=== PATIENT | male | born 1990 | race Caucasian/White ===

== ENCOUNTER 2018-06-06 04:34 | Observation (INO) ==
[2018-06-06] MEDS ORDERED: Sod Chloride 0.9% Inj 1,000 ML IV.SIG ONE (04:58)
[2018-06-06] MEDS ORDERED: Morphine Inj 4 MG/ML Vial IV.PUSH ONE (04:58)
--- NOTE | 2018-06-06 05:03 | ED ---
HPI General Chief Complaint: Abdominal Pain Stated Complaint: Abd pain,rectal pain x 1 day Source: patient Mode of arrival: ambulatory Limitations: no limitations History of Present Illness HPI narrative: 27-year-old male with history of ulcerative colitis presents to the emergency department complaining of abdominal pain and cramping with mucoid bloody stools and hematemesis. Patient is followed by journeyman mechanic and is receiving Remicade once weekly. Patient/journeyman mechanic as recently as Thursday was having minor symptoms that have escalated over the past 4 days. No fever chills. Patient states frequent mucoid bloody stools and then this morning started having vomiting with blood. No near syncope or syncope. No recent antibiotic use. Patient was recently seen in the emergency department according to him. Patient denies other concerns or complaints. Patient has had a 10 pound weight loss in the past 2 weeks reportedly. MD complaint: abdominal pain Onset (ago): day(s) Pain Consistency: constant Location: diffuse Severity: severe Quality: cramping, aching and fullness Radiation: none Migration to: no migration Relieving factors: nothing Exacerbating factors: nothing Context: history of similar episodes Associated symptoms: nausea, vomiting, diarrhea, hematemesis and hematochezia Treatments prior to arrival: other (Remicade once weekly otherwise none prior to arrival to the emergency depart) Related Data Home Medications Medication Instructions Recorded Confirmed infliximab [Remicade] 5 mg/kg IV Q8W 06/06/18 06/06/18 mesalamine 1.5 g PO DAILY 06/06/18 06/06/18 Allergies Allergy/AdvReac Type Severity Reaction Status Date / Time ketorolac [From Toradol] Allergy Hives Verified 06/06/18 05:00 Review of Systems ROS: all other systems reviewed are negative PMFSH History History Provided By: Patient (Inflammatory bowel disease on Remicade) Medical History Medical History History of Crohn's disease (Acute) History of colitis (Acute) Social History Social History Substance History: No History of Abuse Smoking Status: Current some day smoker Tobacco Type: Cigarettes How Often Do You Have a Drink Containing Alcohol: Never Recent Travel in [facility] within the Last 8 Weeks: No Recent Out of Country Travel within the Last 8 Weeks: No Exam Narrative Exam Narrative: GENERAL: Well-nourished, well-developed patient. SKIN: Focused skin assessment warm/dry. HEAD: Normocephalic. EYES: No scleral icterus. No injection or drainage. NECK: Supple, trachea midline. No JVD or lymphadenopathy. CARDIOVASCULAR: Regular rate and rhythm without murmurs, gallops, or rubs. RESPIRATORY: Breath sounds equal bilaterally. No accessory muscle use. GASTROINTESTINAL: Abdomen soft, diffusely tender with voluntary guarding primarily left lower quadrant, nondistended. MUSCULOSKELETAL: No cyanosis, or edema. BACK: Nontender without obvious deformity. No CVA tenderness. Course Reevaluation(s) Reevaluation #1: discussed with [facility] service for OBS admission to Dr Kearney's service Initial Documented Vital Signs Temperature 97.7 F 06/06/18 04:41 Pulse Rate 95 H 06/06/18 04:41 Respiratory Rate 18 06/06/18 04:41 Blood Pressure 132/79 06/06/18 04:41 Pulse Oximetry 100 06/06/18 04:41 Last Documented Vital Signs Temperature 97.7 F 06/06/18 04:41 Pulse Rate 95 H 06/06/18 05:24 Respiratory Rate 18 06/06/18 05:24 Blood Pressure 154/94 H 06/06/18 05:24 Pulse Oximetry 97 06/06/18 05:24 Medical Decision Making MDM Narrative Medical decision making narrative: 27-year-old male presents with abdominal pain bloody mucoid stool and now hematemesis. IV access obtained specimens collected and sent for resulting; patient administered bolus of normal saline along with morphine sulfate 3 mg IV and Zofran 4 mg IV. Additional IV fluids administered Patient with Dilaudid 1 mg IV for pain management Patient identified to have area of inflammatory change most likely consistent with Crohn's by CT imaging one-time dose of Flagyl IV piggyback administered may need addition of IV steroid therapy. Lactic acid elevated at 2.4 patient given additional bolus of normal saline will reassess lactic acid per sepsis protocol as bicarb and anion gap are in normal range. Multiple episodes of diarrhea in the emergency department. Plan for admit to medicine service as observation for intractable pain. Medical Screen Exam Complete: Yes Emergency Medical Condition: Yes Lab Data Result diagrams: 06/06/18 05:10 06/06/18 05:10 Lab Results 06/06/18 06/06/18 06/06/18 Range/Units 05:10 05:10 05:10 CBC w Diff Auto diff final WBC 8.3 (4.0-11.0) th/mm3 RBC 3.94 L (4.50-5.90) mil/mm3 Hgb 10.1 L (13.0-17.0) gm/dL Hct 30.8 L (39.0-51.0) % MCV 78.3 L (80.0-100.0) fL MCH 25.8 L (27.0-34.0) pg MCHC 32.9 (32.0-36.0) % RDW 18.3 H (11.6-17.2) % Plt Count 407 (150-450) th/mm3 MPV 8.4 (7.0-11.0) fL Neut % (Auto) 91.5 H (16.0-70.0) % Lymph % (Auto) 5.2 L (9.0-44.0) % [place] % (Auto) 1.4 (0.0-8.0) % Eos % (Auto) 0.2 (0.0-4.0) % Baso % (Auto) 1.7 (0.0-2.0) % Neut # (Auto) 7.7 (1.8-7.7) th/mm3 Lymph # (Auto) 0.4 L (1.0-4.8) th/mm3 [place] # (Auto) 0.1 (0.0-0.9) th/mm3 Eos # (Auto) 0.0 (0.0-0.4) th/mm3 Baso # (Auto) 0.1 (0.0-0.2) th/mm3 WBC Differential . Differential Comment . PT 11.1 (9.8-11.6) sec INR 1.1 Ratio APTT 22.7 L (24.3-30.1) sec Sodium 141 (136-145) meq/L Potassium 4.6 (3.5-5.1) meq/L Chloride 108 H (98-107) meq/L Carbon Dioxide 25.9 (21.0-32.0) meq/L Anion Gap 7 (5-15) meq/L BUN 21 H (7-18) mg/dL Creatinine 0.87 (0.60-1.30) mg/dL Estimated GFR Greater than 89 (>89) mL/min Random Glucose 126 H (74-106) mg/dL Lactic Acid (0.4-2.0) mmol/L Calcium 8.2 L (8.5-10.1) mg/dL Total Bilirubin 0.1 L (0.2-1.0) mg/dL AST 19 (15-37) U/L ALT 25 (12-78) U/L Alkaline Phosphatase 50 (45-117) U/L Total Protein 7.1 (6.4-8.2) g/dL Albumin 3.7 (3.4-5.0) g/dL Lipase 53 L (73-393) U/L 06/06/18 Range/Units 05:10 CBC w Diff WBC (4.0-11.0) th/mm3 RBC (4.50-5.90) mil/mm3 Hgb (13.0-17.0) gm/dL Hct (39.0-51.0) % MCV (80.0-100.0) fL MCH (27.0-34.0) pg MCHC (32.0-36.0) % RDW (11.6-17.2) % Plt Count (150-450) th/mm3 MPV (7.0-11.0) fL Neut % (Auto) (16.0-70.0) % Lymph % (Auto) (9.0-44.0) % [place] % (Auto) (0.0-8.0) % Eos % (Auto) (0.0-4.0) % Baso % (Auto) (0.0-2.0) % Neut # (Auto) (1.8-7.7) th/mm3 Lymph # (Auto) (1.0-4.8) th/mm3 [place] # (Auto) (0.0-0.9) th/mm3 Eos # (Auto) (0.0-0.4) th/mm3 Baso # (Auto) (0.0-0.2) th/mm3 WBC Differential Differential Comment PT (9.8-11.6) sec INR Ratio APTT (24.3-30.1) sec Sodium (136-145) meq/L Potassium (3.5-5.1) meq/L Chloride (98-107) meq/L Carbon Dioxide (21.0-32.0) meq/L Anion Gap (5-15) meq/L BUN (7-18) mg/dL Creatinine (0.60-1.30) mg/dL Estimated GFR (>89) mL/min Random Glucose (74-106) mg/dL Lactic Acid 2.4 H (0.4-2.0) mmol/L Calcium (8.5-10.1) mg/dL Total Bilirubin (0.2-1.0) mg/dL AST (15-37) U/L ALT (12-78) U/L Alkaline Phosphatase (45-117) U/L Total Protein (6.4-8.2) g/dL Albumin (3.4-5.0) g/dL Lipase (73-393) U/L Imaging Data Radiologist's impression: Abdomen/Pelvis CT 06/06/18 04:58 CONCLUSION: 1. Small focal area of inflammation involving the wall the colon at the junction of the descending and sigmoid colon. No diverticula are appreciated. The exact etiology is uncertain. I cannot exclude Crohn's disease. 2. 12 mm area of either enhancement or calcification involving the medial left upper pole of the kidney. At some point an outpatient ultrasound the kidneys is suggested to further assess. Discharge Plan Discharge Disposition Patient Disposition: 30 Still Patient Discharge Condition Condition: Stable Discharge Details Diagnosis: Crohn's disease, Intractable abdominal pain Physicians Team ED Provider: Charisse Santamaria Primary Care Provider: Primary Care BettyiLou Rxs /Orders / Referrals /Forms Prescriptions: No Action infliximab [Remicade] 100 mg Recon Soln 5 mg/kg IV Q8W RF: 0 mesalamine 0.375 gram Capsule,Extended Release 24hr 1.5 g PO DAILY RF: 0 Status ED Status: In Room
[2018-06-06] MEDS ORDERED: HYDROmorphone PF Inj 2 MG/ML Vial IV.PUSH ONE ×2 (05:15→07:12)
[2018-06-06 05:42] LABS: Chloride 108 meq/L (98-107); Potassium 4.6 meq/L (3.5-5.1); Sodium 141 meq/L (136-145)
[2018-06-06 05:45] LABS: Calcium 8.2 mg/dL (8.5-10.1)
[2018-06-06 05:46] LABS: Albumin 3.7 g/dL (3.4-5.0); Anion Gap 7 meq/L (5-15); Blood Urea Nitrogen 21 mg/dL (7-18); Carbon Dioxide 25.9 meq/L (21.0-32.0); Glucose,Random 126 mg/dL (74-106); Lipase 53 U/L (73-393)
[2018-06-06 05:48] LABS: Alanine Aminotransferase 25 U/L (12-78); Aspartate Aminotransferase 19 U/L (15-37)
[2018-06-06 05:49] LABS: Activated Partial Thrombo Time 22.7 sec (24.3-30.1); Glomerular Filtration Rate Greater Than 89 mL/min (>89); INR 1.1 Ratio; Prothrombin Time 11.1 sec (9.8-11.6)
[2018-06-06 05:50] LABS: Total Protein 7.1 g/dL (6.4-8.2)
[2018-06-06 05:51] LABS: Alkaline Phosphatase 50 U/L (45-117)
[2018-06-06 05:56] LABS: Baso # (Auto) 0.1 th/mm3 (0.0-0.2); Baso % (Auto) 1.7 % (0.0-2.0); Eos % (Auto) 0.2 % (0.0-4.0); Hematocrit 30.8 % (39.0-51.0); Hemoglobin 10.1 gm/dL (13.0-17.0); Lymph # (Auto) 0.4 th/mm3 (1.0-4.8); Lymph % (Auto) 5.2 % (9.0-44.0); Mean Corpuscular HGB Conc 32.9 % (32.0-36.0); Mean Corpuscular Hemoglobin 25.8 pg (27.0-34.0); Mean Corpuscular Volume 78.3 fL (80.0-100.0); Mean Platelet Volume 8.4 fL (7.0-11.0); Mono # (Auto) 0.1 th/mm3 (0.0-0.9); Mono % (Auto) 1.4 % (0.0-8.0); Neut # (Auto) 7.7 th/mm3 (1.8-7.7); Neut % (Auto) 91.5 % (16.0-70.0); Platelet Count 407 th/mm3 (150-450); Red Blood Count 3.94 mil/mm3 (4.50-5.90); Red Cell Distribution Width 18.3 % (11.6-17.2); White Blood Count 8.3 th/mm3 (4.0-11.0)
--- NOTE | 2018-06-06 06:21 | CT ---
EXAM DATE: 06/06/2018 6:07 AM EDT AGE/SEX: 27 years / Male INDICATIONS: Left lower quadrant pain. Blood in stool and hematemesis. CLINICAL DATA: This is the patient's initial encounter. Patient reports that signs and symptoms have been present for 2 days and indicates a pain score of 10/10. MEDICAL/SURGICAL HISTORY: Crohn's disease. Ulcerative colitis. None. ORAL CONTRAST: No oral contrast ingested. RADIATION DOSE: 7.02 CTDI (mGy) COMPARISON: No prior exams available for comparison. TECHNIQUE: Multiple contiguous axial images were obtained through the abdomen and pelvis following b olus infusion of 94 ml Omnipaque 350 (iohexol) nonionic water-soluble contrast as a single exam dos e. No oral contrast ingested. Using automated exposure control and adjustment of the mA and/or kV ac cording to patient size, radiation dose was kept as low as reasonably achievable to obtain optimal di agnostic quality images. DICOM format image data is available electronically for review and comparis on. FINDINGS: Lower Lungs: The visualized lower lungs are clear. Liver: The liver has a homogeneous density without space-occupying lesion. There is no dilation of th e biliary tree. Gallbladder is decompressed. Spleen: Homogeneous density without enlargement. Pancreas: Unremarkable without mass or calcification. Kidneys: Normal in size and shape. There is a 12 mm rounded focus of high attenuation either relatin g to calcium or contrast enhancement involving the medial portion the left upper pole. No hydronephro sis. Adrenal Glands: Unremarkable. Aorta: The aorta and proximal iliac vessels are grossly unremarkable without aneurysmal dilation. Bowel/Mesentery: There is a small focal area of wall thickening which is circumferential in nature i nvolving the junction of the descending colon and sigmoid colon. There is very mild stranding of the adjacent pericolonic fat. The remaining colon is unremarkable. Small bowel is unremarkable. Stomach i s distended with ingested material. No free air or free fluid. Abdominal Wall: Intact. Retroperitoneum: No evidence of adenopathy in the retrocrural, para-aortic, or deep pelvic regions. Bladder: Contours are smooth. Reproductive Organs: No abnormal masses or calcifications seen. Inguinal: The inguinal region is unremarkable without evidence of adenopathy. Bony Structures: Unremarkable. CONCLUSION: 1. Small focal area of inflammation involving the wall the colon at the junction of the descending a nd sigmoid colon. No diverticula are appreciated. The exact etiology is uncertain. I cannot exclude C rohn's disease. 2. 12 mm area of either enhancement or calcification involving the medial left upper pole of the kid arun. At some point an outpatient ultrasound the kidneys is suggested to further assess. Electronically signed by: Yakov Arredondo MD 06/06/2018 6:19 AM EDT
[2018-06-06] MEDS: Sod Chloride 0.9% Inj 1,000 ML IV.SIG SCH ×2 (07:04→19:35)
[2018-06-06] MEDS ORDERED: Bisacodyl 10 MG Supp RECTAL PRN (07:32)
[2018-06-06] MEDS ORDERED: Acetaminophen 325 MG Tablet PO PRN (07:32)
[2018-06-06 07:48] LABS: Bilirubin,Urine Negative (Negative); Clarity,Urine Clear (Clear); Glucose,Urine (UA) 500 mg/dL (Negative); Leukocyte Esterase,Urine Negative (Negative); Nitrite,Urine Negative (Negative); PH,Urine 5.5 (5.0-8.5); Specific Gravity,Urine Less/Equal 1.005 (1.002-1.035); Urobilinogen,Urine 0.2 mg/dL (Less than 2)
[2018-06-06 07:52] LABS: Color,Urine Straw (Yellw/Straw)
[2018-06-06 07:53] LABS: RBC,Urine 0-3 /hpf (0-3); Squamous Epithelial Cell,Urine 0-5 /hpf (0-5)
[2018-06-06] MEDS ORDERED: HYDROmorphone PF Inj 1 MG/ML Ampul IV.PUSH PRN (08:00)
[2018-06-06] MEDS: Senna/Docusate Sodium 8.6/50 MG Tablet PO SCH ×3 (09:49→22:28)
[2018-06-06] MEDS: HYDROmorphone PF Inj 2 MG/ML Vial IV.PUSH PRN ×3 (09:52→19:36)
[2018-06-06] MEDS: Sod Chloride 0.9% Inj 1,000 ML IV.CONT SCH ×2 (09:53→22:27)
[2018-06-06] MEDS: Mesalamine 250 MG Capsule ER PO SCH (09:53)
--- NOTE | 2018-06-06 11:35 | P.HP ---
History of Present Illness Primary Care Physician: No Primary Care Physician Chief Complaint: Abdominal pain History of Present Illness: 27-year-old male with subjective history of Crohn's disease who presented to the hospital for evaluation of abdominal pain. Patient states that he was diagnosed 2 years ago with Crohn's disease. Patient used to live down in [facility] in his channel cementer was located in [facility]. He indicates that he was on Remicade and methylamine in outpatient setting. He states that he was only admitted approximately 3-4 times last year for exacerbations. He states that he goes to the ER at least one time every month for abdominal pain. This episode he states started on Thursday where he started having increased bowel movements approximately 6 times a day with soft bowel movements. He indicates that they dark and sometimes have bright red blood. Patient states that he went to the emergency department and was prescribed oral pain medication however that did not help so he came back to the emergency department again. This time he stated that he had an episode of vomiting with blood in it last night. Patient came to emergency department today and had increased bowel movements. Subjective abdominal pain 10/10 on a pain scale. Patient was given morphine and converted to Dilaudid for pain control. ER physician indicated that she could not control his pain and he had increased number of bowel movements while in the ER so she recommended observation for IV hydration and management. CT scan was done which only showed a small focal area of circumferential bowel abnormality at the descending and sigmoid junction. Laboratory studies indicate some mild prerenal azotemia, however no electrolyte abnormalities. Upon seeing the patient he is asking for increase in his pain medication. He is asking for increased dosage and frequency of Dilaudid. Patient indicates that whenever he comes in for a Crohn's exacerbation he usually treated with steroids. - Diagnosis (1) Sepsis (2) Crohn's disease Review of Systems All other systems reviewed negative except as stated in HPI Constitutional: Reports weight loss Gastrointestinal: Reports abdominal pain, Reports bright, red blood in stools, Reports nausea, Reports vomiting, Reports vomiting blood PMFSH - History History Provided By: Patient - Medical History Medical History: Medical History (Last Updated 06/06/18 @ 05:04 by Akin Navas RN) History of Crohn's disease History of colitis - Surgical History Surgical History: Surgical History (Last Updated 06/06/18 @ 10:40 by RAJAT Bryant) Rosi-rectal abscess - Family History Family History: Family History (Last Updated 06/06/18 @ 10:40 by RAJAT Bryant) Other No pertinent family history - Tobacco History Second Hand Smoke Exposure: No Tobacco Use In Past 30 Days: Yes Smoking Status: Former smoker Tobacco Type: Cigarettes - Alcohol History How Often Do You Have a Drink Containing Alcohol: Monthly or less - Substance Use History Substance History: No History of Abuse - Travel History Recent Travel in the [place] Within the Last 8 Weeks: No Recent Travel Out of the Country Within the Last 8 Weeks: No - Immunization History Tetanus Immunization: Unsure Hx Influenza Vaccine This Season: No Medications and Allergies Active Medications: Active Medications Acetaminophen (Tylenol) 650 mg PO Q4H PRN PRN Reason: Temp > 100.4 Hydrocodone Bitart/Acetaminophen ([place] 5/325) 1 tab PO Q6H PRN PRN Reason: PAIN SCALE 1 TO 5 Hydrocodone Bitart/Acetaminophen ([place] 7.5/325) 1 tab PO Q6H PRN PRN Reason: PAIN SCALE 6 TO 10 Al Hydroxide/Mg Hydroxide (Milk Of Magnesia Liq) 30 ml PO Q12H PRN PRN Reason: Mild Constipation Bisacodyl (Dulcolax Supp) 10 mg RECTAL DAILY PRN PRN Reason: SEVERE CONSITIPATION Hydromorphone HCl (Dilaudid Pf Inj) 0.5 mg IV.PUSH Q4H PRN PRN Reason: BREAKTHROUGH PAIN Last Admin: 06/06/18 09:52 Dose: 0.5 mg Sodium Chloride (Ns Inj) 1,000 mls @ 0 mls/hr IV.SIG [facility]US [facility] Last Admin: 06/06/18 07:04 Dose: 999 mls/hr Sodium Chloride (Ns Inj) 1,000 mls @ 100 mls/hr IV.CONT .Q10H [facility] Last Admin: 06/06/18 09:53 Dose: 100 mls/hr Lactulose (Lactulose Liq) 30 ml PO DAILY PRN PRN Reason: SEVERE CONSITIPATION Mesalamine (Pentasa Sr) 1,500 mg PO DAILY [facility] Last Admin: 06/06/18 09:53 Dose: Not Given Ondansetron HCl (Zofran Inj) 4 mg IV.PUSH Q6H PRN PRN Reason: NAUSEA OR VOMITING Senna/Docusate Sodium (Rosi-Colace) 1 tab PO BID OTTONIEL Last Admin: 06/06/18 09:49 Dose: Not Given Sennosides (Senokot) 17.2 mg PO Q12H PRN PRN Reason: Moderate Constipation Sodium Chloride (Ns Flush) 2 ml IV.FLUSH PRN PRN PRN Reason: FLUSH AFTER USING IV ACCESS Last Admin: 06/06/18 07:31 Dose: 2 ml Allergies Allergy/AdvReac Type Severity Reaction Status Date / Time ketorolac [From Toradol] Allergy Hives Verified 06/06/18 05:00 Home Medications Medication Instructions Recorded Confirmed Type infliximab [Remicade] 5 mg/kg IV Q8W 06/06/18 06/06/18 History mesalamine 1.5 g PO DAILY 06/06/18 06/06/18 History Exam Vital signs: Vital Signs 06/06/18 04:41 06/06/18 05:24 06/06/18 07:46 Temperature 97.7 F Pulse Rate 95 H 95 H 87 Respiratory Rate 18 18 16 Blood Pressure 132/79 154/94 H 142/71 H Pulse Oximetry 100 97 99 06/06/18 08:00 Temperature 98.5 F Pulse Rate 76 Respiratory Rate 20 Blood Pressure 122/60 Pulse Oximetry 96 Intake & Output 06/05/18 06/06/18 06/06/18 18:59 06:59 18:59 Intake Total 1000 / 1000 Balance 1000 / 1000 Weight 67 kg 65.9 kg Intake: IV 1000 / 1000 NS Inj 1,000 ML @ Wide Open IV. 1000 / 1000 SIG BOLUS ONE Rx#:[id number] Other: Weight On Admission 65.9 kg Narrative: GENERAL: Well-developed, well-nourished, in no acute distress. alert and orientated HEENT: Head is normocephalic without any lesions or masses noted. Facial features are symmetric. Eyes: Pupils equal round reactive to light. Extraocular muscles are intact. Conjunctivae were clear. Oropharyngeal: Pharynx without any erythema edema. Tongue is midline without deviation. Buccal mucosa is moist without any masses or lesions NECK: Supple without any masses. Trachea midline no deviation. No JVD, no bruits are appreciated CARDIAC: Regular rhythm, regular rate. S1/S2 are heard. No murmurs gallops or rubs. LUNGS: Clear to auscultation bilaterally. No wheeze, rhonchi or rales. No use of accessory muscles on inspiration or expiration. ABDOMEN: Soft, no significant point tenderness, mild diffuse tenderness noted over on the left side of the abdomen.. Nondistended. Bowel sounds heard in all 4 quadrants. No organomegaly or masses. Negative rebound, negative guarding EXTREMITIES: No edema, pulses are equal bilaterally. No cyanosis or clubbing NEUROLOGY: Mood and affect appear appropriate. Cranial nerves II through XII grossly intact. Muscle strength 5/5 in upper and lower extremities bilaterally. Deep tendon reflexes are 2+ in upper and lower extremities bilaterally. Results - Labs CBC & Chem 7: 06/06/18 05:10 06/06/18 05:10 Labs: Laboratory Results - last 24 hr 06/06/18 06/06/18 06/06/18 05:10 05:10 05:10 CBC w Diff Auto diff final WBC 8.3 RBC 3.94 L Hgb 10.1 L Hct 30.8 L MCV 78.3 L MCH 25.8 L MCHC 32.9 RDW 18.3 H Plt Count 407 MPV 8.4 Neut % (Auto) 91.5 H Lymph % (Auto) 5.2 L [place] % (Auto) 1.4 Eos % (Auto) 0.2 Baso % (Auto) 1.7 Neut # (Auto) 7.7 Lymph # (Auto) 0.4 L [place] # (Auto) 0.1 Eos # (Auto) 0.0 Baso # (Auto) 0.1 WBC Differential . Differential Comment . PT 11.1 INR 1.1 APTT 22.7 L Sodium 141 Potassium 4.6 Chloride 108 H Carbon Dioxide 25.9 Anion Gap 7 BUN 21 H Creatinine 0.87 Estimated GFR Greater than 89 Random Glucose 126 H Lactic Acid Calcium 8.2 L Total Bilirubin 0.1 L AST 19 ALT 25 Alkaline Phosphatase 50 Total Protein 7.1 Albumin 3.7 Lipase 53 L Urine Color Urine Clarity Urine pH Ur Specific [place] Urine Protein Urine Glucose (UA) Urine Ketones Urine Occult Blood Urine Nitrate Urine Bilirubin Urine Urobilinogen Ur Leukocyte Esterase Urine RBC Ur Squamous Epith Cells Micro UA Comment Ur Microscopic Review Urine Culture Comments 06/06/18 06/06/18 05:10 07:30 CBC w Diff WBC RBC Hgb Hct MCV MCH MCHC RDW Plt Count MPV Neut % (Auto) Lymph % (Auto) [place] % (Auto) Eos % (Auto) Baso % (Auto) Neut # (Auto) Lymph # (Auto) [place] # (Auto) Eos # (Auto) Baso # (Auto) WBC Differential Differential Comment PT INR APTT Sodium Potassium Chloride Carbon Dioxide Anion Gap BUN Creatinine Estimated GFR Random Glucose Lactic Acid 2.4 H Calcium Total Bilirubin AST ALT Alkaline Phosphatase Total Protein Albumin Lipase Urine Color Straw Urine Clarity Clear Urine pH 5.5 Ur Specific [place] Less/equal 1.005 Urine Protein Negative Urine Glucose (UA) 500 H Urine Ketones Negative Urine Occult Blood Negative Urine Nitrate Negative Urine Bilirubin Negative Urine Urobilinogen 0.2 Ur Leukocyte Esterase Negative Urine RBC 0-3 Ur Squamous Epith Cells 0-5 Micro UA Comment Culture not ind Ur Microscopic Review Microscopic reviewed Urine Culture Comments Culture not ind - Imaging Impressions Abdomen/Pelvis CT 06/06/18 04:58 CONCLUSION: 1. Small focal area of inflammation involving the wall the colon at the junction of the descending and sigmoid colon. No diverticula are appreciated. The exact etiology is uncertain. I cannot exclude Crohn's disease. 2. 12 mm area of either enhancement or calcification involving the medial left upper pole of the kidney. At some point an outpatient ultrasound the kidneys is suggested to further assess. Caprini VTE Risk Assessment Caprini VTE Risk Assessment: No/Low Risk (score <= 1) Caprini Risk Assessment Model: Point Value = 1 Point Value = 2 Point Value = 3 Point Value = 5 Age 41-60 Minor surgery BMI > 25 kg/m2 Swollen legs Varicose veins or History of unexplained or recurrent spontaneous Oral contraceptives or hormone replacement Sepsis (< 1 month) Serious lung disease, including pneumonia (< 1 month) Abnormal pulmonary function Acute myocardial infarction Congestive heart failure (< 1 month) History of inflammatory bowel disease Medical patient at bed rest Age 61-74 Arthroscopic surgery Major open surgery (> 45 min) Laparoscopic surgery (> 45 min) Malignancy Confined to bed (> 72 hours) Immobilizing plaster cast Central venous access Age >= 75 History of VTE Family history of VTE Factor V Leiden Prothrombin [id number] Lupus anticoagulant Anticardiolipin antibodies Elevated serum homocysteine Heparin-induced thrombocytopenia Other congenital or acquired thrombophilia Stroke (< 1 month) Elective arthroplasty Hip, pelvis, or leg fracture Acute spinal cord injury (< 1 month) Prophylaxis Regimen: Total Risk Factor Score Risk Level Prophylaxis Regimen 0-1 Low Early ambulation 2 Moderate Order ONE of the following: *Sequential Compression Device (SCD) *Heparin 5000 units SQ BID 3-4 Higher Order ONE of the following medications: *Heparin 5000 units SQ TID *Enoxaparin/Lovenox 40 mg SQ daily (WT < 150 kg, CrCl > 30 mL/min) *Enoxaparin/Lovenox 30 mg SQ daily (WT < 150 kg, CrCl > 10-29 mL/min) *Enoxaparin/Lovenox 30 mg SQ BID (WT < 150 kg, CrCl > 30 mL/min) AND/OR *Sequential Compression Device (SCD) 5 or more Highest Order ONE of the following medications: *Heparin 5000 units SQ TID (Preferred with Epidurals) *Enoxaparin/Lovenox 40 mg SQ daily (WT < 150 kg, CrCl > 30 mL/min) *Enoxaparin/Lovenox 30 mg SQ daily (WT < 150 kg, CrCl > 10-29 mL/min) *Enoxaparin/Lovenox 30 mg SQ BID (WT < 150 kg, CrCl > 30 mL/min) AND *Sequential Compression Device (SCD) Assessment and Plan - Assessment (1) Sepsis Code(s): A41.9 - Sepsis, unspecified organism Status: Acute (2) Crohn's disease Code(s): K50.90 - Crohn's disease, unspecified, without complications Status: Acute - Plan Sepsis -Patient meets criteria on admission with tachycardia, lactic acidosis, colitis on CT, likely systemic inflammatory response syndrome secondary to Crohn's exacerbation. -Urinalysis was unremarkable -Obtain chest x-ray, blood cultures -Awaiting stool studies -Patient was given Flagyl in the emergency department -Patient is no longer tachycardia, will repeat lactic acid level Crohn's disease with possible exacerbation -Patient states that he was diagnosed 2 years ago for Crohn's disease, usually admitted 3-4 times a year and goes to the emergency department at least one time every month -Patient does not have a local channel cementer. Will consult channel cementer professor of education -Resume methylamine, Remicade -CT scan shows a small focal area of colitis at the descending sigmoid junction -We will defer treatment with budesonide or steroids to channel cementer -Continue pain control with oral Greenleaf and Dilaudid for breakthrough pain -Continue IV fluids Prerenal azotemia -Continue IV fluids -Monitor renal function Glucosuria, hyperglycemia -Check hemoglobin A1c DVT prevention -Sequential compression devices, avoid chemical prophylaxis secondary to subjective hematemesis, hematochezia
--- NOTE | 2018-06-06 12:58 | XR ---
EXAM DATE: 06/06/2018 12:54 PM EDT AGE/SEX: 27 years / Male INDICATIONS: . Sepsis CLINICAL DATA: This is the patient's subsequent encounter. Patient reports that signs and symptoms h ave been present for 2 days and indicates a pain score of 0/10. MEDICAL/SURGICAL HISTORY: . Crohn's disease. Ulcerative colitis. Angioplasty. COMPARISON: No prior exams available for comparison. FINDINGS: AP and lateral views of the chest demonstrate the lungs to be symmetrically aerated without evidence of mass, infiltrate or effusion. The cardiomediastinal contours are unremarkable. Osseous structure s are intact. CONCLUSION: Negative examination. Electronically signed by: John Ryan MD 06/06/2018 12:57 PM EDT
[2018-06-06 20:25] VITALS: RESP 18
[2018-06-07] MEDS: HYDROmorphone PF Inj 2 MG/ML Vial IV.PUSH PRN ×3 (00:06→08:44)
[2018-06-07] MEDS: Sod Chloride 0.9% Inj 1,000 ML IV.CONT SCH ×2 (03:59→13:59)
[2018-06-07 06:24] LABS: Baso % (Auto) 0.2 % (0.0-2.0); Eos % (Auto) 0.1 % (0.0-4.0); Hemoglobin 8.5 gm/dL (13.0-17.0); Lymph # (Auto) 1.6 th/mm3 (1.0-4.8); Lymph % (Auto) 22.8 % (9.0-44.0); Mean Corpuscular HGB Conc 31.3 % (32.0-36.0); Mean Corpuscular Hemoglobin 24.6 pg (27.0-34.0); Mean Corpuscular Volume 78.6 fL (80.0-100.0); Mean Platelet Volume 7.5 fL (7.0-11.0); Mono # (Auto) 0.9 th/mm3 (0.0-0.9); Neut # (Auto) 4.6 th/mm3 (1.8-7.7); Neut % (Auto) 63.9 % (16.0-70.0); Platelet Count 371 th/mm3 (150-450); Red Blood Count 3.44 mil/mm3 (4.50-5.90); Red Cell Distribution Width 17.2 % (11.6-17.2); White Blood Count 7.1 th/mm3 (4.0-11.0)
[2018-06-07 06:37] LABS: Chloride 109 meq/L (98-107); Potassium 3.8 meq/L (3.5-5.1); Sodium 144 meq/L (136-145)
[2018-06-07 06:39] LABS: Calcium 7.8 mg/dL (8.5-10.1)
[2018-06-07 06:40] LABS: Anion Gap 8 meq/L (5-15); Blood Urea Nitrogen 13 mg/dL (7-18); Carbon Dioxide 27.1 meq/L (21.0-32.0); Glucose,Random 90 mg/dL (74-106)
[2018-06-07 06:43] LABS: Glomerular Filtration Rate Greater Than 89 mL/min (>89)
[2018-06-07 07:05] LABS: RBC Morphology Normal (Normal)
[2018-06-07 07:06] LABS: Platelet Estimate Normal (Normal); Platelet Morphology Normal (Normal)
[2018-06-07] MEDS: Senna/Docusate Sodium 8.6/50 MG Tablet PO SCH (08:42)
[2018-06-07] MEDS: Mesalamine 250 MG Capsule ER PO SCH (08:42)
[2018-06-07 10:12] VITALS: O2SAT 96
--- NOTE | 2018-06-07 10:38 | MB ---
cc: Ines Damon MD DATE: 06/07/2018 REASON FOR CONSULTATION: Abdominal pain, rule out Crohn exacerbation. HISTORY OF PRESENT ILLNESS: This is a 27-year-old male patient, known case of Crohn disease for the last 2-1/2 years. He was treated in a different facility for the same problem. The patient had several attacks of exacerbation over the last 2-1/2 years, requiring hospitalization at least 2-3 times and the use of steroids at least twice. His last colonoscopy was in 10/2016 that showed active disease. Subsequently, he was placed on a different kind regimen of medication without any improvement. Two months ago, he received his first dose of Remicade. At the current time, the patient presented with abdominal pain, mostly left lower quadrant, described as dull, aching in nature, not related to food or bowel movement. He had frequent bowel movements at least 4-5 times daily, described as watery. No blood or mucus. Denies any fever, chills or rigors. Denies any other associated symptoms including epigastric pain, nausea, vomiting, change in weight or appetite. In the emergency room, the patient had initial evaluation, and during a hospital observation he had frequent bowel movements. Had a CT scan that showed possible colitis in a small segment involving the junction between descending and the sigmoid colon, but otherwise the scan was unremarkable. He was admitted for further evaluation. REVIEW OF SYSTEMS: All 14-point review of systems is negative other than the ones mentioned in the history of present illness. PAST MEDICAL HISTORY: Crohn's diagnosed in 10/2015. Multiple hospitalizations for the same problem requiring high dose and frequent pain medication to control his abdominal pain. Recently placed on Remicade infusion to control his disease. FAMILY HISTORY: Unremarkable. PAST SURGICAL HISTORY: Colonoscopy that was in 03/2017 and he had perirectal abscess drainage 2 years ago. PSYCHOSOCIAL HISTORY: Recently moved to this area. He is a tobacco smoker. Drinks alcohol infrequently. No history of drug abuse. Traveling negative. MEDICATIONS: The patient is receiving Remicade. His next dose is 06/19/2018. He is on mesalamine 1.5 grams daily. PHYSICAL EXAMINATION: GENERAL: The patient appeared to be comfortable, not in severe distress or in pain. Hemodynamically stable and good nutritional status and good hydration. HEAD AND NECK: No jaundice, no pallor. Normocephalic, atraumatic. Pupils equal, round, reactive to light. NECK: Supple. CHEST: Clear to auscultation bilaterally. No crackles or wheezes. HEART: Regular rate and rhythm. No murmurs. ABDOMEN: Soft with minimal tenderness in left lower quadrant. No rebound, tenderness or rigidity. No hepatosplenomegaly. No palpable masses. EXTREMITIES: Normal pulses. No edema. NEUROLOGIC: Cranial nerves 2-12 grossly intact. No motor or sensory deficit. SKIN: Showed multiple tattoos, but no rashes or lesions. LABORATORY DATA: Hemoglobin of 10.1, hematocrit 30.8, white count 8.3, platelets 4.7. Electrolytes within normal limits except chloride of [address] scan as in history of present illness. ASSESSMENT AND PLAN: A 27-year-old male patient who presented with the following problems: 1. Crohn's disease diagnosed in 10/2015. 2. Frequent exacerbations and a poor response to treatment. 3. Recently started on Remicade for better disease control. 4. Last colonoscopy showing active disease in 03/2017, currently symptomatic with abdominal pain and diarrhea, but no evidence of active inflammation by blood testing since he did not have any further workup. PLAN: 1. We will check ESR and CRP. 2. Check fecal calprotectin. 3. Will hold on doing any colonoscopy for the time being since the patient recently started on Remicade infusion and too early to assess response. 4. Agree with methylprednisolone or Solu-Medrol for disease control. If his inflammatory markers are negative, to switch to oral and discharged home to taper over 2 weeks. 5. We will follow with you. Thank you for the consult. MD JEREMIE Bass/doug , 10:08 AM , 10:19 AM
[2018-06-07] MEDS ORDERED: MethylPREDNISolone Sod Succinate Inj 40 MG/ML Vial IV.PUSH SCH (11:00)
--- NOTE | 2018-06-07 11:00 | P.PN ---
Subjective Interval history: 27-year-old male who is seen and examined today for follow-up on possible Crohn' s exacerbation. Nursing staff indicates that the patient is refusing p.o. pain medication only requesting IV Dilaudid. Requesting that his dosage and frequency be increased. Patient indicates that he had difficult time sleeping last night due to pain. Patient indicating that he had 6 bowel movements yesterday, however there is no documented bowel movement by nursing staff. Vital signs appear to be stable, patient afebrile. Physical Exam Vital signs: Vital Signs 06/06/18 11:22 06/06/18 15:20 06/06/18 20:00 Temperature 98.6 F 97.4 F L 97.9 F Pulse Rate 75 81 96 H Respiratory Rate 20 20 18 Blood Pressure 120/64 118/69 122/58 L Pulse Oximetry 97 97 98 06/07/18 00:00 06/07/18 08:00 Temperature 97.7 F 97.6 F Pulse Rate 80 64 Respiratory Rate 18 18 Blood Pressure 125/72 106/54 L Pulse Oximetry 98 96 Intake & Output 06/06/18 06/07/18 06/07/18 18:59 06:59 18:59 Intake Total 1940 / 1940 2200 / 2200 Balance 1940 / 1940 2200 / 2200 Weight 65.9 kg Intake: IV 1100 / 1100 2000 / 2000 NS Inj 1,000 ML @ 100 mls/hr IV 1000 / 1000 .CONT .Q10H [facility] Rx#:[id number] NS Inj 1,000 ML @ Wide Open IV. 1000 / 1000 1000 / 1000 SIG BOLUS O[facility] Rx#:[id number] Oral 840 / 840 200 / 200 Other: # Voids 4 2 Weight On Admission 65.9 kg Narrative: GENERAL: Well-developed, well-nourished, in no acute distress. alert and orientated HEENT: Head is normocephalic without any lesions or masses noted. Facial features are symmetric. Eyes: Extraocular muscles are intact. Conjunctivae were clear. NECK: Supple without any masses. Trachea midline no deviation. No JVD, CARDIAC: Regular rhythm, regular rate. S1/S2 are heard. No murmurs gallops or rubs. LUNGS: Clear to auscultation bilaterally. No wheeze, rhonchi or rales. No use of accessory muscles on inspiration or expiration. ABDOMEN: Soft, nontender. Nondistended. Bowel sounds heard in all 4 quadrants. No organomegaly or masses. Negative rebound, negative guarding EXTREMITIES: No edema, pulses are equal bilaterally. No cyanosis or clubbing NEUROLOGY: Mood and affect appear appropriate. Cranial nerves II through XII grossly intact. Moving all extremities, speech is clear Results - Labs CBC & Chem 7: 06/07/18 05:58 06/07/18 05:58 Laboratory Results - last 24 hr 06/06/18 06/06/18 06/07/18 06:25 12:13 05:58 CBC w Diff Slide review pending WBC 7.1 RBC 3.44 L Hgb 8.5 L Hct 27.0 L MCV 78.6 L MCH 24.6 L MCHC 31.3 L RDW 17.2 Plt Count 371 MPV 7.5 Neut % (Auto) 63.9 Lymph % (Auto) 22.8 [place] % (Auto) 13.0 H Eos % (Auto) 0.1 Baso % (Auto) 0.2 Neut # (Auto) 4.6 Lymph # (Auto) 1.6 [place] # (Auto) 0.9 Eos # (Auto) 0.0 Baso # (Auto) 0.0 WBC Differential . Diff Scan Auto diff confirmed Differential Comment . Platelet Estimate Normal Platelet Morphology Normal RBC Morphology Normal ESR Sodium Potassium Chloride Carbon Dioxide Anion Gap BUN Creatinine Estimated GFR Random Glucose Lactic Acid 1.5 Calcium C-Reactive Protein St C. diff Tox Epid 027 Negative C. difficile Tox (PCR) Negative 06/07/18 06/07/18 06/07/18 05:58 05:58 05:58 CBC w Diff WBC RBC Hgb Hct MCV MCH MCHC RDW Plt Count MPV Neut % (Auto) Lymph % (Auto) [place] % (Auto) Eos % (Auto) Baso % (Auto) Neut # (Auto) Lymph # (Auto) [place] # (Auto) Eos # (Auto) Baso # (Auto) WBC Differential Diff Scan Differential Comment Platelet Estimate Platelet Morphology RBC Morphology ESR 4 Sodium 144 Potassium 3.8 D Chloride 109 H Carbon Dioxide 27.1 Anion Gap 8 BUN 13 Creatinine 0.61 Estimated GFR Greater than 89 Random Glucose 90 Lactic Acid Calcium 7.8 L C-Reactive Protein Less than 0.29 St C. diff Tox Epid 027 C. difficile Tox (PCR) - Imaging Impressions Chest X-Ray 06/06/18 00:00 CONCLUSION: Negative examination. Assessment and Plan - Assessment (1) Sepsis Code(s): A41.9 - Sepsis, unspecified organism Status: Acute (2) Crohn's disease Code(s): K50.90 - Crohn's disease, unspecified, without complications Status: Acute - Plan Sepsis, resolved -Patient meets criteria on admission with tachycardia, lactic acidosis, colitis on CT, likely systemic inflammatory response syndrome secondary to Crohn's exacerbation. -Urinalysis was unremarkable -Chest x-ray did not indicate any acute abnormality -Blood cultures are pending -Stool studies were negative -Patient was given Flagyl in the emergency department -Patient is no longer tachycardia, repeat lactic acid level is normal Crohn's disease with possible exacerbation -Patient states that he was diagnosed 2 years ago for Crohn's disease, usually admitted 3-4 times a year and goes to the emergency department at least one time every month -Patient does not have a local wood milling machine tender. Will consult wood milling machine tender manager international -Resume methylamine, Remicade -CT scan shows a small focal area of colitis at the descending sigmoid junction -Inflammatory markers such as sed rate and C-reactive protein are negative -Patient is refusing to take oral [place], only requesting IV Dilaudid with increased dosage and frequency. We will continue oral pain medication -Continue IV fluids -Patient is tolerating diet -GI was consulted, discussed case with them extensively. They indicate that since the patient is on Remicade unable to perform any colonoscopy for at least 6 months. They recommended that if inflammatory markers such as C-reactive protein and sed rate are negative, then they would recommend Solu-Medrol 40 mg every 12 hours today and discharge patient tomorrow. Prerenal azotemia, resolved -Continue IV fluids -Monitor renal function Glucosuria, hyperglycemia -Hemoglobin A1c is pending Suspected drug-seeking behavior -With patient's request for only IV pain medication, refusing p.o. medication -E force evaluation was performed, it was quite impressive with a plethora of aliases, over 70 narcotic prescriptions, over 50 providers, over 30 different pharmacies in the last year. -We will need to be very careful with prescription narcotic medication with this patient. DVT prevention -Sequential compression devices, avoid chemical prophylaxis secondary to subjective hematemesis, hematochezia Addendum: Patient requested to speak to me again. Upon entering the room patient states that he is feeling much better. He discussed it with his mother and he would like to be discharged. The patient states that he does not have a GI doctor in the area, I notified him that he can follow-up with the wood milling machine tender who saw him in the hospital today. He should be able to arrange for an appointment within the next 2 weeks. Patient is indicating that his previous gastrologist usually gives him a prescription for prednisone in a tapering dose. Patient is clinically stable at this time. Inflammatory markers such as sed rate and C-reactive protein are negative. We will plan to discharge Discharge Planning: Discharge home in stable condition Activity: Ad calin. Diet: Regular diet Medication per medication reconciliation Follow-up with primary medical doctor in 1 week
[2018-06-07 11:14] LABS: Hemoglobin A1c 5.9 % (4.3-6.0)
[2018-06-07 13:11] VITALS: BP 104/61; PULSE 76; TEMP 98
[2018-06-08] MEDS ORDERED: Mesalamine 250 MG Capsule ER PO SCH (09:00)
== END 2018-06-07 16:01 | disposition home or self-care (01) ==
LOC: PHED 04:34 → PHEDA 04:34 → PH3 07:46 → UNDODISOB 06-07 12:50
PROVIDERS: ADMIT Hospitalist; ATTEND Hospitalist
DX: A41.9 Sepsis, unspecified organism; F17.210 Nicotine dependence, cigarettes, uncomplicated; K50.90 Crohn's disease, unspecified, without complications; E87.2 Acidosis; K62.89 Other specified diseases of anus and rectum